=== PATIENT | female | born 1965 | race African-American/Black ===

== ENCOUNTER 2021-02-21 10:31 | Outpatient (REF) | payer OTHER, SELFPAY | END 2021-02-21 10:32 | disposition home or self-care (01) | LOC: HO.LAB 10:31 | PROVIDERS: Visit Provider Nurse Practitioner Family | DX: M54.5 Low back pain (principal); M79.602 Pain in left arm; C64.9 Malignant neoplasm of unspecified kidney, except renal pelvis; Z99.2 Dependence on renal dialysis; Z86.73 Personal history of transient ischemic attack (TIA), and cerebral infarction without residual deficits; Z88.8 Allergy status to other drugs, medicaments and biological substances | CPT/HCPCS: 99202 ==